=== PATIENT | female | born 1970 | race Asian ===

== ENCOUNTER 2021-05-01 12:53 | Inpatient (IN) | payer BC ==
[~2021-05-01] VITALS: Ht 154.9 cm; Wt 57.5 kg
[~2021-05-01 12:53] MED LIST: KEFLEX500 MG PO; MEDROLDOSEPACK PO
[2021-05-01 12:55] VITALS: BP 102/60
[2021-05-01 13:39] LABS: ABSOLUTE NEUTROPHILS 6.9 thou/uL (1.4-8.2); BASOPHILS 0.2 % (0.0-2.0); HEMATOCRIT 43.4 % (37.0-47.0); HEMOGLOBIN 14.8 gm/dL (12.0-15.0); LYMPHOCYTES 4.6 % (24.0-44.0); MCH 30.5 pg (26.0-34.0); MCHC 34.1 g/dL (28.0-37.0); MCV 89.7 fL (80.0-100.0); MONOCYTES 11.2 % (1.0-8.0); PLATELET COUNT 220 thou/uL (150-400); RBC 4.83 mil/uL (4.20-5.00); RDW 12.9 % (10.5-14.5); WBC 8.3 thou/uL (4.0-11.0)
[2021-05-01 13:52] LABS: CALCIUM 8.6 mg/dL (8.5-10.1); CREATININE 0.9 mg/dL (0.6-1.0); POTASSIUM 3.7 mmol/L (3.5-5.1)
[2021-05-01 14:02] LABS: ALBUMIN 3.3 g/dL (3.4-5.0); TOTAL BILIRUBIN 0.3 mg/dL (0.2-1.0); TOTAL PROTEIN 7.8 g/dL (6.4-8.2)
[2021-05-01 16:21] VITALS: BP 97/57
[2021-05-01 17:43] VITALS: BP 105/58
--- NOTE | 2021-05-01 19:21 | NUR ---
PT ADMITTED FROM ER FOR COVID PNEUMONIA, PT IS A&OX4, PT'S VS ARE STABLE AT DAY SHIFT, ID HAS CONSULT, PT HAS STARTED IV ABX AND TREAT COVID MEDICATIONS,
[2021-05-01 19:28] VITALS: BP 97/55
[2021-05-01 23:37] VITALS: BP 94/56
--- NOTE | 2021-05-02 03:15 | NUR ---
PT ALERT & ORIENTED X 4. CURRENTLY ON 5L O2 NC. PT LUNGS SOUNDS ARE DIMINISHED AT THE BASES. REQUESTED AND RECEIVED ORDERS FOR BREATHING TREATMENTS FROM DOOR CUTTER, RT TO ADMINISTER. VSS AFEBRILE. PT IS UP AD CHUCK AND IS INDEPENDENT WITH ADLS. WILL CONTINUE TO MONITOR.
[2021-05-02 05:11] VITALS: BP 103/64
--- NOTE | 2021-05-02 05:33 | NUR ---
PT APPEARS FLUSHED AND IS GROANING BUT IS DENYING PAIN. VSS. INCREASED TO 8L O2 NC. PT MENTAL STATUS CHANGED FROM BASELINE AND DISORIENTED. NOTIFIED EXPORT MANAGER AND RECEIEVED ORDERS FOR STAT ABG. WILL CONTINUE TO MONITOR.
[2021-05-02 05:46] LABS: BASOPHILS 0.1 % (0.0-2.0); HEMATOCRIT 41.4 % (37.0-47.0); LYMPHOCYTES 14.1 % (24.0-44.0); MCH 30.2 pg (26.0-34.0); MCHC 33.8 g/dL (28.0-37.0); MCV 89.2 fL (80.0-100.0); MONOCYTES 15.2 % (1.0-8.0); PLATELET COUNT 229 thou/uL (150-400); POLYS 70.6 % (36.0-66.0); RBC 4.64 mil/uL (4.20-5.00); WBC 7.1 thou/uL (4.0-11.0)
[2021-05-02 05:50] LABS: BE(vivo) 5.8 mmol/L (-2 to +3); HCO3 29.9 mmol/L (22.0-26.0); PCO2 41.4 mmHg (35.0-45.0); PO2 76.7 mmHg (80.0-100.0); pH 7.476 (7.360-7.450); sO2 96.1 % (92.0-98.0)
[2021-05-02 06:20] LABS: ALBUMIN 2.8 g/dL (3.4-5.0); ANION GAP 13 mmol/L (7-16); BUN 15 mg/dL (7-18); CALCIUM 8.5 mg/dL (8.5-10.1); CHLORIDE 104 mmol/L (98-107); CO2 27 mmol/L (21-32); CREATININE 0.7 mg/dL (0.6-1.0); DIRECT BILIRUBIN < 0.1 mg/dL (<0.1-0.2); GLUCOSE 118 mg/dL (74-106); PHOSPHORUS 3.8 mg/dL (2.5-4.9); POTASSIUM 3.5 mmol/L (3.5-5.1); SGOT 69 U/L (15-37); SGPT 42 U/L (30-65); TOTAL BILIRUBIN 0.2 mg/dL (0.2-1.0); TOTAL PROTEIN 6.7 g/dL (6.4-8.2)
[2021-05-02 06:22] LABS: SODIUM 144 mmol/L (136-145)
[2021-05-02 07:34] VITALS: BP 94/60
--- NOTE | 2021-05-02 14:26 | HC ---
[facility] [address] [place] [address] CONSULTATION Name: CRISTOBAL VALDIVIA Room #: 355-P ADM IN M.R.#: [id number] Admission: 05/01/21 Attend Phys: Lita Mcmahon Discharge: Date of : 72 Report #: [id number] THIS REPORT FOR: cc: YARON - No family physician/PCP YARON - No family physician/PCP Deawyne Shaw MD ~ DATE OF SERVICE: 05/01/2021 INFECTIOUS DISEASES CONSULTATION REASON FOR CONSULTATION: I was asked to evaluate concerning COVID-19 pneumonia. HISTORY OF PRESENT ILLNESS: The patient was a 50-year-old otherwise healthy individual who developed cough, sinus congestion, rhinorrhea, headache, myalgias and arthralgias approximately 2 weeks ago, ultimately diagnosed with COVID-19 one week ago by PCR test. She had been taking ibuprofen up until the last two days when she was started on prednisone by a family physician friend. She developed progressive shortness of breath. Other family members including her and children have been COVID positive as well and are also sick. She had been taking care of them. She is unvaccinated for COVID-19. She has had no history of immunodeficiency. She had pneumonia when she was a child. She is an immigrant from [facility] when she was in grade school. She did screen positive for tuberculosis, although she has been vaccinated and at that time, she was treated with oral preventive therapy. She was unclear as to the specifics of her medication that was given. No family history of tuberculosis. She has no HIV risk factors. She reports headache, anosmia, nausea, diarrhea, anorexia, myalgias, and arthralgias. She has had cough, production of white colored and yellow sputum without hemoptysis or chest pain. She has had some presyncopal symptoms. REVIEW OF SYSTEMS: A 14-point review of system was negative other than what has been described above. PAST MEDICAL HISTORY: Unremarkable other than what is noted above. ALLERGIES: PENICILLIN WITH HIVES. FAMILY HISTORY: Negative for tuberculosis. SOCIAL HISTORY: Nonsmoker, no significant alcohol intake. MEDICATIONS: Prior to admission included nonsteroidal anti-inflammatories followed by prednisone. PHYSICAL EXAMINATION: [facility] [address] [place] [address] CONSULTATION Name: CRISTOBAL VALDIVIA Room #: 355-P [facility] IN M.R.#: [id number] Admission: 05/01/21 Attend Phys: Lita Mcmahon Discharge: Date of : 72 Report #: [id number] GENERAL: She was afebrile and hemodynamically stable. Alert and cooperative now on 4 liters of oxygen per nasal cannula. Mental status was within normal limits. SKIN: Without rash or decubitus. No palpable adenopathy. HEENT: Eyes without scleral icterus. Mouth without mucositis. NECK: Supple, no thyromegaly or mass. LUNGS: Clear. HEART: Regular, without murmur, gallop or rub. ABDOMEN: Soft and nontender with no hepatosplenomegaly or mass. GENITORECTAL: Not performed. SPINE: Nontender. EXTREMITIES: Without clubbing, cyanosis or edema. NEUROLOGIC: Cranial nerves intact. Strength in the upper and lower extremities was symmetric and within normal limits. PSYCHIATRIC: Mood without anxiety. LABORATORY DATA: Reviewed. Microbiology reviewed. CT scan of the chest reviewed. IMAGING: Chest x-ray reviewed. IMPRESSION: A 50-year-old with COVID-19 pneumonia. No other comorbidities identified. She has mild transaminase elevation. RECOMMENDATIONS: We will continue combination antiviral and corticosteroid therapy along with antibiotics pending culture results. Serial laboratory studies and chest x-ray. We will screen for HIV and tuberculosis as well. The patient will remain on the COVID isolation unit for cardiopulmonary monitoring. I discussed with her the treatment options including corticosteroids and remdesivir this evening along with Actemra if she should show signs of progression. The patient was in agreement with current plan of care. <ELECTRONICALLY SIGNED> By: Dewayne Shaw MD 05/02/21 1426 [id number] 11 Dewayne Shaw MD /nt
[2021-05-02 16:19] VITALS: BP 98/64
--- NOTE | 2021-05-02 18:34 | NUR ---
RN ASSUMED PT'S CARE AT 0700AM, PT IS A&OX4, PT ADMITTED FOR COVID PNEUMONIA AT 05/01/21, PT IS CONTINUING IV ABX AND TREAT COVID MEDICATIONS, PT'S O2 IS 5L/MIN/NC, PT'S O2SAT AND VS ARE STABLE AT DAY SHIFT, PT STILL HAS SOB WITH ACTIVITIES,
[2021-05-02 19:45] VITALS: BP 109/66
--- NOTE | 2021-05-02 21:55 | NUR ---
PT SLEEPING PRONE. O2 7L NC. LUNGS DIMINISHED. PT EDUCATED ON NEW MEDICATION FOR COVID AND PROVIDED PRE MEDICATIONS. PT INDEPENDENTLY USING BSC. NOTED SOA WITH EXERTION. PT ATE FOOD BROUGHT FROM HOME. PT CALLS FOR ASSISTANCE.
[2021-05-03 04:45] VITALS: BP 110/61
[2021-05-03 04:54] LABS: HEMATOCRIT 41.6 % (37.0-47.0); HEMOGLOBIN 13.6 gm/dL (12.0-15.0); MCH 29.6 pg (26.0-34.0); MCHC 32.8 g/dL (28.0-37.0); MCV 90.5 fL (80.0-100.0); RBC 4.6 mil/uL (4.20-5.00); RDW 12.9 % (10.5-14.5); WBC 4.1 thou/uL (4.0-11.0)
[2021-05-03 05:06] LABS: ALBUMIN 2.7 g/dL (3.4-5.0); ANION GAP 9 mmol/L (7-16); BUN 18 mg/dL (7-18); CALCIUM 8.7 mg/dL (8.5-10.1); CHLORIDE 104 mmol/L (98-107); CO2 30 mmol/L (21-32); CREATININE 0.7 mg/dL (0.6-1.0); DIRECT BILIRUBIN < 0.1 mg/dL (<0.1-0.2); GLUCOSE 122 mg/dL (74-106); PHOSPHORUS 4.2 mg/dL (2.5-4.9); SGOT 46 U/L (15-37); SGPT 37 U/L (30-65); SODIUM 143 mmol/L (136-145); TOTAL BILIRUBIN 0.2 mg/dL (0.2-1.0); TOTAL PROTEIN 6.4 g/dL (6.4-8.2)
[2021-05-03 07:44] VITALS: BP 96/57
[2021-05-03 08:06] LABS: HIV ANTIBODY Non Reactive (Non Reactive)
[2021-05-03 11:34] VITALS: BP 96/57
[2021-05-03 16:55] VITALS: BP 108/70
[2021-05-03 19:23] VITALS: BP 118/73
--- NOTE | 2021-05-03 20:09 | NUR ---
PT ALERT AND ORIENTED X 4. PT VERY ANXIOUS THROUGHOUT SHIFT. ASKING RN ABOUT POC AND MEDICATIONS. PT IN CHAIR FOR FULL SHIFT TODAY. NO COMPLAINTS OF PAIN. WILL CONTINUE TO MONITOR.
--- NOTE | 2021-05-03 22:18 | NUR ---
PT AMBULATING IN ROOM, STEADY GAIT, O2 PER NC 5L. LUNGS DIMINISHED. PT ASKING QUESTIONS RE HOW MUCH TO DRINK BECAUSE ONE DR TOLD HER TO LIMIT FLUID INTAKE AND ANOTHER TOLD HER MODERATION. PT EATING MEALS FROM HOME, NOT HOSPITAL. NOT SOA WITH TALKING, SOA WIHT EXERTION. PT HESITANT TO CONTINUE TAKING MUCINEX AND VIT C. PT STATED SHE HAD NOT ASKED FOR RESPIRATORY TREATMENT BECAUSE SHE FORGOT, RT CAME TO SEE PT THIS EVENING. PT VERBALIZED SHE WAS TOLD NOT TO LAY IN BED ALL DAY, SO SHE SAT IN CHAIR AND STATED SHE IS NOW FATIGUED.
[2021-05-04 02:37] VITALS: BP 99/63
[2021-05-04 03:23] LABS: ABSOLUTE NEUTROPHILS 3.2 thou/uL (1.4-8.2); BASOPHILS 0.1 % (0.0-2.0); HEMATOCRIT 41.8 % (37.0-47.0); HEMOGLOBIN 13.7 gm/dL (12.0-15.0); LYMPHOCYTES 16.5 % (24.0-44.0); MCH 29.6 pg (26.0-34.0); MCHC 32.8 g/dL (28.0-37.0); MCV 90.3 fL (80.0-100.0); MONOCYTES 15.4 % (1.0-8.0); PLATELET COUNT 281 thou/uL (150-400); RBC 4.63 mil/uL (4.20-5.00); RDW 13.1 % (10.5-14.5); WBC 4.6 thou/uL (4.0-11.0)
[2021-05-04 04:42] LABS: ALBUMIN 2.7 g/dL (3.4-5.0); ANION GAP 10 mmol/L (7-16); BUN 23 mg/dL (7-18); CALCIUM 8.4 mg/dL (8.5-10.1); CHLORIDE 106 mmol/L (98-107); CO2 29 mmol/L (21-32); CREATININE 0.7 mg/dL (0.6-1.0); DIRECT BILIRUBIN < 0.1 mg/dL (<0.1-0.2); GLUCOSE 118 mg/dL (74-106); PHOSPHORUS 4.1 mg/dL (2.5-4.9); POTASSIUM 3.8 mmol/L (3.5-5.1); SGOT 31 U/L (15-37); SGPT 34 U/L (30-65); SODIUM 145 mmol/L (136-145); TOTAL BILIRUBIN 0.2 mg/dL (0.2-1.0); TOTAL PROTEIN 5.8 g/dL (6.4-8.2)
--- NOTE | 2021-05-04 07:10 | EKG ---
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
[2021-05-04 07:30] VITALS: BP 100/70
[2021-05-04 15:08] VITALS: BP 93/78
--- NOTE | 2021-05-04 15:26 | NUR ---
INITIAL ASSESSMENT: Received consult. SW reviewed chart and spoke with nursing and attending physician. Pt was admitted from home due to COVID pneumonia. Pt placed in Enhanced Isolation. Pt has not received a COVID vaccination. Pt is afebrile and on 5L of O2. Pt is on IV abx, IV steroids and Remdesivir. SW spoke with pt via phone. Introduced role of SW. Pt is alert/orientated x 4. Pt reports she lives at home with her family. Prior to admission, pt was independent with ADLs. No use of DME. No hx of HH services or post-acute placement. Pt's PCP is Dr. Maritza Gonzalez at [facility]. Plan is for pt to discharge home when medically stable. Pt is agreeable with HH and/or home O2 if needed. SW is following to assist as needed with discharge planning.
[2021-05-04 19:29] VITALS: BP 104/68
--- NOTE | 2021-05-04 19:39 | NUR ---
RN ASSUMED PT'S CARE AT 0700-1900PM, PT IS A&OX4, PT IS ON O2 5L/MIN/NC, PT'S O2SAT STAY AT 93-96%, PT'S SOB HAS IMPROVED, PT GETS UP TO BSC AND CHAIR , PT IS CONTINUING IV BAX AND TREAT COVID MEDICATIONS, PT DENIES PAIN AT DAY SHIFT.
--- NOTE | 2021-05-04 23:10 | NUR ---
PT UP IN CHAIR, INDEPENDENTLY AMBULATING IN ROOM, O2 PER NC AT 4L. LUNGS WITH CRACKLES IN BASES. COUGH CONTINUES. PT EATING FOOD BROUGHT IN FROM HOME. PT REPORTED DIARRHEA X 1 DURING THE DAY.
[2021-05-05] VITALS (10 sets, daily range): BP systolic 89–112; BP diastolic 47–70
[2021-05-05 06:34] LABS: ABSOLUTE NEUTROPHILS 2.8 thou/uL (1.4-8.2); BASOPHILS 0.2 % (0.0-2.0); EOSINOPHILS 0.7 % (0.0-3.0); HEMATOCRIT 41.8 % (37.0-47.0); HEMOGLOBIN 13.8 gm/dL (12.0-15.0); LYMPHOCYTES 22.7 % (24.0-44.0); MCH 29.7 pg (26.0-34.0); MCV 90.3 fL (80.0-100.0); MONOCYTES 11.5 % (1.0-8.0); PLATELET COUNT 311 thou/uL (150-400); POLYS 64.9 % (36.0-66.0); RBC 4.63 mil/uL (4.20-5.00); RDW 12.9 % (10.5-14.5); WBC 4.3 thou/uL (4.0-11.0)
[2021-05-05 07:00] LABS: ALBUMIN 2.7 g/dL (3.4-5.0); ANION GAP 6 mmol/L (7-16); BUN 24 mg/dL (7-18); CALCIUM 8.6 mg/dL (8.5-10.1); CHLORIDE 106 mmol/L (98-107); CO2 31 mmol/L (21-32); CREATININE 0.7 mg/dL (0.6-1.0); DIRECT BILIRUBIN < 0.1 mg/dL (<0.1-0.2); GLUCOSE 89 mg/dL (74-106); POTASSIUM 3.5 mmol/L (3.5-5.1); SGOT 38 U/L (15-37); SGPT 39 U/L (30-65); SODIUM 143 mmol/L (136-145); TOTAL BILIRUBIN 0.3 mg/dL (0.2-1.0)
--- NOTE | 2021-05-05 07:16 | NUR ---
PT WAS IN RESTROOM CALLED FOR ASSISTANCE. AIDE AT PTS SIDE PT WAS STANDING AND LEANING ON WALL AFTER USING RESTROOM, PT ASSISTED TO FLOOR. PT HAD TO BE EXTENSIVELY ASSISTED BACK TO BED. PT REMAINED ALERT. PT CONTINUES TO STATE SHE CAN WALK TO THE RESTROOM BY HERSELF. PT EDUCATED SHE WILL NEED TO NOW CALL FOR ASSISTANCE AND TO USE BSC. BED ALARM ON. TRAIN ATTENDANT AND DR WILL BE CALLED.PT IS OWN GUARDIAN.
[2021-05-05 12:59] LABS: T-SPOT.TB Negative
[2021-05-05] MEDS ORDERED: ACETAMINOPHEN325 M1 PO (13:51)
[2021-05-05] MEDS ORDERED: VITAMIN C1000 MG PO (13:51)
[2021-05-05] MEDS ORDERED: AMBIEN 5 MG TABL5 M1 PO (13:51)
[2021-05-05] MEDS ORDERED: MUCINEX600 MG PO (13:51)
[2021-05-05] MEDS ORDERED: PREDNISONE 20 M20 M1 PO (13:51)
[2021-05-05] MEDS ORDERED: VITAMIN D325 MC2 PO (13:51)
--- NOTE | 2021-05-05 14:27 | NUR ---
DISCHARGE NOTE: SW was notified by pt's nurse that pt has discharge orders to go home today with HH services. Pt to finish course of Remdesivir today. Pt is afebrile and requiring O2. Rest/exercise oximetry ordered to determine home O2 needs. SARKIS spoke with pt via phone to provide update and discuss discharge plan. Pt is aware and agreeable with discharge plan. Options for HH and DME providers discussed with pt. No preference voiced. SARKIS confirmed pt's home address and phone number. SARKIS faxed referral to [facility] and notified liaison. SARKIS faxed home O2 referral to [facility] and notified [facility] liaison. Awaiting rest/exercise oximetry to be completed. Portable O2 tank at the nurses station for pt to take home. [facility] and [facility] in pt's discharge summary. Pt states she will have transportation home when ready for discharge. SARKIS is following to finalize discharge plan.
--- NOTE | 2021-05-05 19:37 | NUR ---
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
== END 2021-05-05 17:58 | disposition home or self-care (01) | DRG 871 ==
LOC: ER 12:53 → 3W 15:46 → EROBS 15:46 → 3W 17:00
PROVIDERS: Nurse Practitioner; Nurse Practitioner Family; Specialist; ADMIT Hospitalist; ATTEND Hospitalist
PROC: XW033E5 Introduction of Remdesivir Anti-infective into Peripheral Vein, Percutaneous Approach, New Technology Group 5 (ICD-10-PCS; principal; 2021-05-01)
PROC: 5A0935A Assistance with Respiratory Ventilation, Less than 24 Consecutive Hours, High Flow/Velocity Cannula (ICD-10-PCS; 2021-05-02)
DX: A41.89 Other specified sepsis (principal); U07.1 COVID-19; J12.82 Pneumonia due to coronavirus disease 2019; R74.01 Elevation of levels of liver transaminase levels; J96.01 Acute respiratory failure with hypoxia; Z82.49 Family history of ischemic heart disease and other diseases of the circulatory system; Z79.899 Other long term (current) drug therapy
CPT/HCPCS: 10879